=== PATIENT | male | born 1975 | race Two or more races ===

== ENCOUNTER 2016-10-29 02:50 | Emergency (ER) | payer SELFPAY ==
[2016-10-29 03:09] VITALS: PULSE 80; TEMP 98.3; BMI 30.5
[2016-10-29] MEDS ORDERED: KETOROLAC TROMETHAMINE 30 MG/1 ML VIAL IVPUSH ONE (03:37)
[2016-10-29] MEDS ORDERED: SODIUM CHLORIDE 0.9% 1000 ML INFUS.BAG IV ONE (03:37)
--- NOTE | 2016-10-29 03:48 | PDOC ---
History of Present Illness - General Chief Complaint: Pain, Acute Stated Complaint: ABD PAIN Time Seen by Provider: 10/29/16 03:12 - History of Present Illness Initial Comments: 10/29/16 03:38 CHIEF COMPLAINT: LLQ pain HISTORY OF PRESENT ILLNESS: 41 yo M with no PMH presents to ED with pain to " the left side of my stomach" since today. Patient states he has had a history of epigastric pain for the last 5-6 months, "but that comes and goes, but this is a new pain." He reports the pain as 10/10 especially when he coughs. He denies any nausea, vomiting, diarrhea, rectal bleeding, or any urinary symptoms. No recent travel or sick contacts. PAST MEDICAL HISTORY: Denies past medical history FAMILY HISTORY: Denies SOCIAL HISTORY: Current smoker, 2 pack daily. Denies alcohol, illicit drug use. SURGICAL HISTORY: Denies ALLERGIES: No known drug allergies REVIEW OF SYSTEMS General/Constitutional: Denies fever or chills. Denies weakness. HEENT: Denies change in vision. Denies ear pain or discharge. Denies sore throat. Cardiovascular: Denies chest pain or shortness of breath. Respiratory: Denies cough, wheezing, or hemoptysis. Gastrointestinal: Denies nausea, vomiting, diarrhea or constipation. Denies rectal bleeding. Genitourinary: Denies dysuria, frequency, or change in urination. Musculoskeletal: Denies joint or muscle swelling or pain. Denies neck or back pain. Skin and breasts: Denies rash or easy bruising. PHYSICAL EXAM General Appearance: Well-appearing, appropriately dressed. No apparent distress. HEENT: EOMI, PERRLA, normal ENT inspection, normal voice, TMs normal, pharynx normal. No conjunctival pallor. No photophobia, scleral icterus. Neck: Supple. Trachea midline. No tenderness, rigidity, carotid bruit, stridor , lymphadenopathy, or thyromegaly. Respiratory/Chest: Lungs CTAB. Cardiovascular: RRR. S1, S2. Gastrointestinal/Abdominal: LLQ vs L CVA tenderness. Normal bowel sounds. Abdomen soft, non-distended. No tenderness or rebound tenderness. No organomegaly, pulsatile mass, guarding, hernia, hepatomegaly, splenomegaly. Lymphatic: No adenopathy, tenderness. Musculoskeletal/Extremities: Normal inspection. FROM of all extremities, normal capillary refill. Pelvis Stable. No tenderness to extremities, pedal edema, swelling, erythema or deformity. Integumentary: Appropriate color, dry, warm. No cyanosis, erythema, jaundice or rash Neurologic: derrick operator II-XII intact. Fully oriented, alert. Appropriate mood/affect. Motor strength 5/5. No appreciable EOM palsy, facial droop or sensory deficit. Past History - Past Medical History Allergies/Adverse Reactions: Allergies Allergy/AdvReac Type Severity Reaction Status Date / Time No Known Allergies Allergy Verified 10/29/16 03:09 Home Medications: Ambulatory Orders Ibuprofen 800 mg PO TID PRN #21 tablet 10/29/16 - Immunization History Immunization Up to Date: Yes - Psycho/Social/Smoking Cessation Hx Anxiety: No Suicidal Ideation: No Smoking Status: Yes Smoking History: Current every day smoker Have you smoked in the past 12 months: Yes Number of Cigarettes Smoked Daily: 40 Cigars Per Day: 0 Information on smoking cessation initiated: Yes Hx Alcohol Use: No Drug/Substance Use Hx: No Substance Use Type: None *Physical Exam - Vital Signs Last Vital Signs Temp Pulse Resp BP Pulse Ox 98.3 F 80 18 144/95 100 10/29/16 03:04 10/29/16 03:04 10/29/16 03:04 10/29/16 03:04 10/29/16 03:04 ED Treatment Course - LABORATORY CBC & Chemistry Diagram: 10/29/16 04:50 10/29/16 04:50 - RADIOLOGY Radiology Studies Ordered: Category Date Time Status SPIRAL- RENAL-STONE CT [CT] Stat CT Scan 10/29/16 03:38 Ordered Medical Decision Making - Medical Decision Making 10/29/16 03:48 41 yo M with no PMH presents to ED with pain to "the left side of my stomach" since today. -CBC, CMP, UA, UCx -IVF, Toradol -Spiral CT CT results: No nephrolithiasis, ureterolithiasis or obstructive uropathy. No bladder calculi. Unremarkable pancreas and gallbladder. No bowel obstruction, colitis , diverticulitis, free fluid or free air. Normal appendix. Minimal hepatosplenomegaly. Small umbilical hernia containing fat. Chronic compression fracture L1. Read by: Xi Gomes M.D. 10/29/16 05:58 Will discharge to home with close f/u with PMD and ortho/GI. Advised patient of signs and symptoms for return to ER; patient verbalized understanding and agrees to plan. *DC/Admit/Observation/Transfer Diagnosis at time of Disposition: Abdominal pain Qualifiers: Abdominal location: left lower quadrant Qualified Code(s): R10.32 - Left lower quadrant pain - Discharge Dispostion Disposition: HOME Condition at time of disposition: Improved Admit: No - Prescriptions Prescriptions: Ibuprofen 800 mg PO TID PRN #21 tablet PRN Reason: Pain - Referrals Referrals: Marielle Choudhary MD [Primary Care Provider] - Deshaun Mckee MD [Staff Physician] - Alba Escudero MD [Staff Physician] - - Patient Instructions Printed Discharge Instructions: DI for Abdominal Pain-Adult Additional Instructions: Take medication as prescribed. As discussed, please follow up with a primary care doctor for further evaluation of your abdominal pain. You may also see the apparel trimmings sales representative for further evaluation of the pain in the middle of your stomach and the orthopedist for further evaluation of the pain to your left side. If you experience chest pain, shortness of breath, fever, nausea, vomiting, diarrhea, or any new or worsening symptoms, please return to the ER.
[2016-10-29] MEDS ORDERED: KETOROLAC TROMETHAMINE 30 MG/1 ML VIAL ONE (04:35)
[2016-10-29 05:01] LABS: BASOPHIL 1.3 % (0-2.0); EOSINOPHIL 1.8 % (0-4.5); MCH 30.2 pg (25.7-33.7); MCHC 33.3 g/dl (32.0-35.9); MEAN CELL VOLUME 90.8 fl (80-96); MEAN PLT VOLUME 7.4 fl (7.5-11.1); PLATELET COUNT 229 K/MM3 (134-434); RDW 13.2 % (11.9-15.9); WHITE BLOOD COUNT 9.1 K/mm3 (4.0-10.0)
[2016-10-29] MEDS ORDERED: MAG HYDROX/AL HYDROX/SIMETH 355 ML ORAL.SUSP PO ONE (05:03)
[2016-10-29] MEDS ORDERED: FAMOTIDINE 20 MG/50 ML IVPB 50 ML IVPB ONE ×2 (05:04→05:09)
[2016-10-29] MEDS ORDERED: MAG HYDROX/AL HYDROX/SIMETH 30 ML UNIT-DOSE CUP ONE (05:09)
[2016-10-29 05:24] LABS: ALK PHOS 122 U/L (45-117); ANION GAP 8 (8-16); BILIRUBIN,TOTAL 0.2 mg/dL (0.2-1.0); CALCIUM 8.8 mg/dL (8.5-10.1); CO2 28 mmol/L (21-32); COCKROFT - GAULT 154.34; CREATININE 0.9 mg/dL (0.7-1.3); GLUCOSE,RANDOM 94 mg/dL (74-106); SGOT/AST 16 U/L (15-37); SGPT/ALT 28 U/L (12-78)
[2016-10-29 06:42] VITALS: BP 138/84
== END 2016-10-29 06:35 | disposition home or self-care (01) ==
LOC: JER 02:50
PROC: 3E033GC Introduction of Other Therapeutic Substance into Peripheral Vein, Percutaneous Approach (ICD-10-PCS; principal; 2016-10-29)
PROC: 3E0333Z Introduction of Anti-inflammatory into Peripheral Vein, Percutaneous Approach (ICD-10-PCS; 2016-10-29)
DX: R10.32 Left lower quadrant pain (principal); F17.210 Nicotine dependence, cigarettes, uncomplicated
CPT/HCPCS: 36415; 74176; 80053; 85025; 99283-25

== ENCOUNTER 2017-07-08 19:33 | Emergency (ER) | payer OTHER ==
--- NOTE | 2017-07-08 19:48 | PDOC ---
Rapid Medical Evaluation Time Seen by Provider: 07/08/17 19:47 Medical Evaluation: Allergies Allergy/AdvReac Type Severity Reaction Status Date / Time No Known Allergies Allergy Verified 10/29/16 03:09 I have performed a brief in-person evaluation of this patient. The patient presents with a chief complaint of: laceration to left thumb Pertinent physical exam findings: lac to left thumb I have ordered the following: nothing. Had tetanus last year The patient will proceed to the ED for further evaluation.
[2017-07-08 19:52] VITALS: BP 140/90; PULSE 77; TEMP 98; BMI 29.1
--- NOTE | 2017-07-08 22:24 | PDOC ---
History of Present Illness - General Chief Complaint: Laceration Stated Complaint: LACERATION Time Seen by Provider: 07/08/17 19:47 History Source: Patient Exam Limitations: No Limitations - History of Present Illness Initial Comments: 07/08/17 22:25 Was cleaning a kitchen stove, slipped and incised right thumb on edge of metal. Patient cut from one edge of nail on the palmar aspect of distal thumb to the other edge, not through and through. Has full range of motion of finger, no other injury Occurred: reports: just prior to arrival Severity: reports: mild Pain Location: reports: upper extremity (right thumb) Method of Injury: Yes: direct blow Associated Symptoms (Fall): denies symptoms Past History - Travel Traveled outside of the country in the last 30 days: No Close contact w/someone who was outside of country & ill: No - Past Medical History Allergies/Adverse Reactions: Allergies Allergy/AdvReac Type Severity Reaction Status Date / Time No Known Allergies Allergy Verified 07/08/17 19:49 Home Medications: Ambulatory Orders NK [No Known Home Medication] 07/08/17 COPD: No - Immunization History Immunization Up to Date: Yes - Suicide/Smoking/Psychosocial Hx Smoking Status: Yes Smoking History: Current every day smoker Have you smoked in the past 12 months: Yes Number of Cigarettes Smoked Daily: 40 Cigars Per Day: 0 Information on smoking cessation initiated: No Hx Alcohol Use: No Drug/Substance Use Hx: No Substance Use Type: None Review of Systems - Review of Systems Able to Perform ROS?: Yes Is the patient limited Upper Sorbian proficient: Yes Constitutional: Yes: Symptoms Reported, See HPI. No: Fever, Malaise HEENTM: No: Symptoms Reported Musculoskeletal: Yes: Symptoms Reported Integumentary: Yes: Symptoms Reported Neurological: Yes: See HPI. No: Symptoms reported All Other Systems: Reviewed and Negative *Physical Exam - Vital Signs Last Vital Signs Temp Pulse Resp BP Pulse Ox 98 F 77 16 140/90 99 07/08/17 19:51 07/08/17 19:51 07/08/17 19:51 07/08/17 19:51 07/08/17 19:51 - Physical Exam General Appearance: Yes: Nourished, Appropriately Dressed, Apparent Distress, Mild Distress HEENT: positive: MONTSE, Normal ENT Inspection, TMs Normal, Pharynx Normal Musculoskeletal: negative: Normal Inspection Extremity: positive: Normal Capillary Refill, Normal Range of Motion (strong flexion and extension against resistance, sensation is intact distal to digit, no nailbed involvement. Has a 2 cm laceration extending from 1 border of thumbnail around palmar aspect of thumb to the other border of nail), Tender. negative: Normal Inspection Integumentary: positive: Dry, Warm, Pale Neurologic: positive: brush sander II-XII NML intact, Fully Oriented, Alert, Normal Mood/ Affect, Normal Response, Motor Strength 5/5 Procedures - Laceration/Wound Repair Right Volar Finger Wound Length: to 2.5 cm Wound Explored: clean Wound's Depth, Shape: linear Irrigated w/ Saline: Yes Betadine Prep: Yes Anesthesia: 1% Lidocaine Wound Repaired With: Sutures Suture Size/Type: 5:0 Number of Sutures: 8 Layer Closure: No Splint Applied: Yes Progress Note - Progress Note Progress Note: Thumb laceration repaired *DC/Admit/Observation/Transfer Diagnosis at time of Disposition: Finger laceration Qualifiers: Encounter type: initial encounter Finger: thumb Damage to nail status: without damage Foreign body presence: without foreign body Laterality: right Qualified Code(s): S61.011A - Laceration without foreign body of right thumb without damage to nail, initial encounter - Discharge Dispostion Disposition: HOME Condition at time of disposition: Stable Admit: No - Referrals Referrals: Margie Garcia [Primary Care Provider] - - Patient Instructions Printed Discharge Instructions: DI for Laceration Repair Additional Instructions: Rest, elevate, avoid strenuous activity or heavy lifting until sutures are removed Leave dressing on for the next 24 hours, Then may remove dressing gently and wash area with soap and water. Reapply bacitracin ointment and dressing daily for the next 5 days On day #6 keep the wound protected and cover as needed until sutures are removed allowing wound to start to dry May use Tylenol or Motrin for pain relief Suture removal in : 10-14 Days - Post Discharge Activity
== END 2017-07-08 22:34 | disposition home or self-care (01) ==
LOC: JERFT 19:33
PROC: 0HQFXZZ Repair Right Hand Skin, External Approach (ICD-10-PCS; principal; 2017-07-08)
DX: S61.011A Laceration without foreign body of right thumb without damage to nail, initial encounter (principal); F17.210 Nicotine dependence, cigarettes, uncomplicated; W26.8XXA Contact with other sharp object(s), not elsewhere classified, initial encounter; Y93.E9 Activity, other interior property and clothing maintenance; Y92.000 Kitchen of unspecified non-institutional (private) residence as the place of occurrence of the external cause
CPT/HCPCS: 99281-25

== ENCOUNTER 2018-04-06 03:27 | Emergency (ER) | payer OTHER ==
[2018-04-06 03:52] VITALS: BMI 29.1
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
[2018-04-06] MEDS ORDERED: KETOROLAC TROMETHAMINE 30 MG/1 ML VIAL ONE (04:48)
[2018-04-06 04:57] LABS: BASO % 0.5 % (0-2.0); EOS % 1.8 % (0-4.5); HEMOGLOBIN 15.4 GM/dL (11.7-16.9); LYMPH % 37.8 % (8-40); MCH 30.8 pg (25.7-33.7); MCHC 34.1 g/dl (32.0-35.9); MEAN CELL VOLUME 90.4 fl (80-96); MEAN PLT VOLUME 7.1 fl (7.5-11.1); MONO % 6.2 % (3.8-10.2); NEUT % 53.7 % (42.8-82.8); PLATELET COUNT 285 K/MM3 (134-434); RBC 4.98 M/mm3 (4.00-5.60); RDW 13.5 % (11.9-15.9); WHITE BLOOD COUNT 11.4 K/mm3 (4.0-10.0)
[2018-04-06] MEDS ORDERED: KETOROLAC TROMETHAMINE 30 MG/1 ML VIAL IVPUSH ONE (05:15)
[2018-04-06 05:28] LABS: ALK PHOS 116 U/L (45-117); ANION GAP 6 MMOL/L (8-16); BILIRUBIN,TOTAL 0.3 mg/dL (0.2-1); BLOOD UREA NITROGEN 13 mg/dL (7-18); CALCIUM 8.8 mg/dL (8.5-10.1); CHLORIDE 105 mmol/L (98-107); CO2 29 mmol/L (21-32); CREATININE 1.1 mg/dL (0.55-1.3); GLUCOSE,RANDOM 107 mg/dL (74-106); POTASSIUM 4.1 mmol/L (3.5-5.1); SGOT/AST 21 U/L (15-37); SGPT/ALT 38 U/L (13-61); SODIUM 140 mmol/L (136-145); TOT PROT 7.3 g/dl (6.4-8.2)
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
[2018-04-06] MEDS ORDERED: MAG HYDROX/AL HYDROX/SIMETH 30 ML UNIT-DOSE CUP PO ONE (07:21)
[2018-04-06] MEDS ORDERED: MAG HYDROX/AL HYDROX/SIMETH 30 ML UNIT-DOSE CUP ONE (07:22)
[2018-04-06 07:36] VITALS: BP 143/105; PULSE 78; TEMP 98.7
--- NOTE | 2018-04-06 12:49 | EKG ---
Test Reason : Blood Pressure : / mmHG Vent. Rate : 077 BPM Atrial Rate : 077 BPM P-R Int : 158 ms QRS Dur : 082 ms QT Int : 396 ms P-R-T Axes : 043 032 062 degrees QTc Int : 448 ms POOR DATA QUALITY, INTERPRETATION MAY BE ADVERSELY AFFECTED NORMAL SINUS RHYTHM NORMAL ECG Confirmed by MD AKIL, ABIMAEL ([id number]) on 04/06/2018 12:48:39 PM Referred By: Confirmed By:ABIMAEL BARNARD MD
== END 2018-04-06 07:48 | disposition left against medical advice (07) ==
LOC: JER 03:27
PROC: 3E0333Z Introduction of Anti-inflammatory into Peripheral Vein, Percutaneous Approach (ICD-10-PCS; principal; 2018-04-06)
DX: S20.211A Contusion of right front wall of thorax, initial encounter (principal); R55 Syncope and collapse; V43.52XA Car driver injured in collision with other type car in traffic accident, initial encounter; Y92.488 Other paved roadways as the place of occurrence of the external cause; Y93.89 Activity, other specified; Y99.8 Other external cause status
CPT/HCPCS: 36415; 71260-TC; 74177-TC; 80053; 84484; 85025; 93005; 93010; 99284-25